=== PATIENT | female | born 1980 | race Caucasian/White ===

== ENCOUNTER 2020-01-03 22:57 | Emergency (ER) | payer BC ==
[~2020-01-03] VITALS: Ht 172 cm; Wt 125.9 kg
[~2020-01-03 22:57] MED LIST: HYDR-757 PO
[2020-01-03] MEDS ORDERED: NS IV 1000 ML 1,000 ML IV SCH (23:23)
[2020-01-03 23:28] LABS: BILIRUBIN,URINE NEGATIVE (NEGATIVE); CLARITY,URINE SL CLOUDY; COLOR,URINE YELLOW; GLUCOSE, URINE (UA) NEGATIVE (NEGATIVE); KETONES,URINE NEGATIVE (NEGATIVE); LEUKOCYTE ESTERASE ,URINE NEGATIVE (NEGATIVE); NITRITE,URINE NEGATIVE (NEGATIVE); PROTEIN,URINE NEGATIVE (NEGATIVE)
[2020-01-03] MEDS ORDERED: KETOROLAC 30 MG/ML VIAL IVP ONE (23:30)
[2020-01-03] MEDS ORDERED: ONDANSETRON 4 MG/2 ML (SDV) Z0FRAN IVP ONE (23:30)
[2020-01-03 23:31] LABS: BASOPHILS % (AUTO) 0 % (0-10); EOSINOPHILS # (AUTO) 0.2 10^3/uL (0.0-0.3); EOSINOPHILS % (AUTO) 2 % (0-10); HEMATOCRIT 36 % (35-52); HEMOGLOBIN 11.8 G/DL (11.5-16.0); LYMPHOCYTES # (AUTO) 2.9 X 10^3 (1.0-4.0); LYMPHOCYTES % (AUTO) 35 % (12-44); MEAN CORPUSCULAR HEMOGLOBIN 29 PG (25-34); MEAN CORPUSCULAR HGB CONC 33 G/DL (32-36); MEAN CORPUSCULAR VOLUME 90 FL (80-99); MEAN PLATELET VOLUME 10.6 FL (7.4-10.4); MONOCYTES # (AUTO) 0.7 X 10^3 (0.0-1.0); MONOCYTES % (AUTO) 8 % (0-12); NEUTROPHILS # (AUTO) 4.6 X 10^3 (1.8-7.8); NEUTROPHILS % (AUTO) 54 % (42-75); PLATELET COUNT 308 10^3/uL (130-400); RED CELL DISTRIBUTION WIDTH 14.9 % (10.0-14.5); WHITE BLOOD COUNT 8.4 10^3/uL (4.3-11.0)
[2020-01-03 23:38] LABS: ALBUMIN 4.1 GM/DL (3.2-4.5); POTASSIUM 3.9 MMOL/L (3.6-5.0)
[2020-01-03 23:40] LABS: BACTERIA,URINE FEW /HPF; CALCIUM OXALATE CRYSTALS,UR FEW /LPF; WBC,URINE 0-2 /HPF
[2020-01-03 23:41] LABS: TOTAL PROTEIN 7.7 GM/DL (6.4-8.2)
[2020-01-03 23:42] LABS: BILIRUBIN,TOTAL 0.4 MG/DL (0.1-1.0)
[2020-01-03 23:44] LABS: CREATININE SERUM 1.07 MG/DL (0.60-1.30)
--- NOTE | 2020-01-04 00:54 | NUR ---
Report from JOSE M Gama to assume care of pt
--- NOTE | 2020-01-04 01:39 | ED Abdominal Pain ---
General Chief Complaint: Abdominal/GI Problems Stated Complaint: L SIDE PAIN Nursing Triage Note: pt presents to ed with complaints of l lower abdominal pain since 1930. pt reports nausea and increased urgency with urination. Sepsis Screen: No Definite Risk Source of Information: Patient Exam Limitations: No Limitations History of Present Illness Date Seen by Provider: Jan 03, 2020 Time Seen by Provider: 23:18 Initial Comments This 39-year-old woman presents to the emergency room with pain extending from her left lower back and flank around to the left groin. It started around 19:30 rather abruptly. She has had some nausea and frequency. Urine has been dark. She has no history of ureteral stones. She denies . LMP was December 28. Allergies and Home Medications Allergies Coded Allergies: No Known Drug Allergies (Unverified , 11/18/14) Home Medications Hydrocodone Bit/Acetaminophen 1 Each Tablet, 1 EA PO Q6H PRN for SEVERE PAIN Prescribed by: WELLINGTON DEVLIN on 11/18/14 1439 Hydrocodone/Acetaminophen 1 Each Tablet, 1 EACH PO Q4H PRN for PAIN-BREAKTHROUGH Prescribed by: ILENE LOYOLA on 01/04/20147 Ondansetron 4 Mg Tab.rapdis, 4 MG SL Q4H PRN for NAUSEA/VOMITING Prescribed by: ILENE LOYOLA on 01/04/20147 Patient Home Medication List Home Medication List Reviewed: Yes Review of Systems Review of Systems Constitutional: no symptoms reported EENTM: No Symptoms Reported Respiratory: No Symptoms Reported Cardiovascular: No Symptoms Reported Gastrointestinal: See HPI Genitourinary: See HPI Musculoskeletal: no symptoms reported Skin: no symptoms reported Psychiatric/Neurological: No Symptoms Reported Endocrine: No Symptoms Reported Hematologic/Lymphatic: No Symptoms Reported Past Eigucnx-Dphoxc-Pcmdcv Hx Past Med/Social Hx: Reviewed Nursing Past Med/Soc Hx Patient Social History Alcohol Use: Occasionally Uses Recreational Drug Use: No Smoking Status: Never a Smoker Recent Foreign Travel: No Contact w/Someone Who Travel: No Recent Infectious Disease Expo: No Physical Abuse: No Sexual Abuse: No Mistreated: No Fear: No Seasonal Allergies Seasonal Allergies: Yes Past Medical History Surgeries: Yes (gastric sleeve, r knee) Section Respiratory: Yes Asthma Cardiac: No Neurological: No Reproductive Disorders: No Gastrointestinal: No Musculoskeletal: No Endocrine: No Cancer: No Psychosocial: No Anxiety, Depression Integumentary: No Blood Disorders: No Adverse Reaction/Blood Tranf: No Physical Exam Vital Signs Vital Signs - First Documented 01/03/20 01/04/20 23:25 01:56 Temp 36.6 Pulse 83 Resp 18 B/P (MAP) 145/109 (121) Pulse Ox 99 O2 Delivery Room Air Capillary Refill : Less Than 3 Seconds Height/Weight/BMI Height: 5'8" Weight: 230lbs. oz. 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, no motor/sensory deficits, alert, normal mood/affect, oriented x 3 Skin: normal color, warm/dry Progress/Results/Core Measures Results/Orders Lab Results Laboratory Tests Test 01/03/20 23:07 01/03/20 23:19 Range/Units Urine Color YELLOW Urine Clarity SL CLOUDY Urine pH 6.0 5-9 Urine Specific [place] >=1.030 1.016-1.022 Urine Protein NEGATIVE NEGATIVE Urine Glucose (UA) NEGATIVE NEGATIVE Urine Ketones NEGATIVE NEGATIVE Urine Nitrite NEGATIVE NEGATIVE Urine Bilirubin NEGATIVE NEGATIVE Urine Urobilinogen 1.0 < = 1.0 MG/DL Urine Leukocyte Esterase NEGATIVE NEGATIVE Urine RBC (Auto) 2+ H NEGATIVE Urine RBC 2-5 H /HPF Urine WBC 0-2 /HPF Urine Squamous Epithelial Cells 2-5 /HPF Urine Crystals PRESENT H /LPF Urine Calcium Oxalate Crystals FEW H /LPF Urine Bacteria FEW H /HPF Urine Casts NONE /LPF Urine Mucus SMALL H /LPF Urine Culture Indicated YES White Blood Count 8.4 4.3-11.0 10^3/uL Red Blood Count 4.02 L 4.35-5.85 10^6/uL Hemoglobin 11.8 11.5-16.0 G/DL Hematocrit 36 35-52 % Mean Corpuscular Volume 90 80-99 FL Mean Corpuscular Hemoglobin 29 25-34 PG Mean Corpuscular Hemoglobin Concent 33 32-36 G/DL Red Cell Distribution Width 14.9 H 10.0-14.5 % Platelet Count 308 130-400 10^3/uL Mean Platelet Volume 10.6 H 7.4-10.4 FL Neutrophils (%) (Auto) 54 42-75 % Lymphocytes (%) (Auto) 35 12-44 % Monocytes (%) (Auto) 8 0-12 % Eosinophils (%) (Auto) 2 0-10 % Basophils (%) (Auto) 0 0-10 % Neutrophils # (Auto) 4.6 1.8-7.8 X 10^3 Lymphocytes # (Auto) 2.9 1.0-4.0 X 10^3 Monocytes # (Auto) 0.7 0.0-1.0 X 10^3 Eosinophils # (Auto) 0.2 0.0-0.3 10^3/uL Basophils # (Auto) 0.0 0.0-0.1 10^3/uL Sodium Level 139 135-145 MMOL/L Potassium Level 3.9 3.6-5.0 MMOL/L Chloride Level 109 H 98-107 MMOL/L Carbon Dioxide Level 19 L 21-32 MMOL/L Anion Gap 11 5-14 MMOL/L Blood Urea Nitrogen 16 7-18 MG/DL Creatinine 1.07 0.60-1.30 MG/DL Estimat Glomerular Filtration Rate 57 BUN/Creatinine Ratio 15 Glucose Level 108 H 70-105 MG/DL Calcium Level 9.0 8.5-10.1 MG/DL Corrected Calcium 8.9 8.5-10.1 MG/DL Total Bilirubin 0.4 0.1-1.0 MG/DL Aspartate Amino Transf (AST/SGOT) 16 5-34 U/L Alanine Aminotransferase (ALT/SGPT) 9 0-55 U/L Alkaline Phosphatase 82 40-136 U/L C-Reactive Protein High Sensitivity 0.22 0.00-0.50 MG/DL Total Protein 7.7 6.4-8.2 GM/DL Albumin 4.1 3.2-4.5 GM/DL Lipase 24 8-78 U/L Serum Test, Qualitative NEGATIVE NEGATIVE My Orders Orders - ILENE GALVEZ MD Ua Culture If Indicated (01/03/20 23:19) Ondansetron Injection (Zofran Injectio (01/03/20 23:30) Ketorolac Injection (Toradol Injection) (01/03/20 23:30) Ed Iv/Invasive Line Start (01/03/20 23:23) Ns Iv 1000 Ml (Sodium Chloride 0.9%) (01/03/20 23:23) Cbc With Automated Diff (01/03/20 23:23) Comprehensive Metabolic Panel (01/03/20 23:23) Hs C Reactive Protein (01/03/20 23:23) Hcg,Qualitative Serum (01/03/20 23:23) Lipase (01/03/20 23:23) Urine Culture (01/03/20 23:07) Ct Abd/Pelvis Wo(Kidney Stone) (01/04/20 00:40) Oxycodone/Apap 5/325mg Tablet (Percocet (01/04/20 01:45) Medications Given in ED Current Medications Medications Dose Ordered Sig/Joellen Route Start Time Stop Time Status Last Admin Dose Admin Oxycodone/ Acetaminophen 1 tab ONCE ONCE PO 01/04/20 01:45 01/04/20 01:46 DC 01/04/20 01:48 1 TAB Vital Signs/I&O 01/03/20 01/04/20 23:25 01:56 Temp 36.6 36.6 Pulse 83 79 Resp 18 18 B/P (MAP) 145/109 (121) 150/94 (121) Pulse Ox 99 99 O2 Delivery Room Air Blood Pressure Mean: 121 Progress Progress Note : Progress Note Patient received Zofran, Toradol, and IV fluids. Blood was noted in her urine. Risks and benefits of CT were reviewed with patient. Patient elects to proceed with CT scan and a small distal ureteral stone was noted on the left. Patient was treated accordingly. Departure Impression Primary Impression: Left ureteral stone Disposition: HOME, SELF-CARE Condition: Improved Departure-Patient Inst. Decision time for Depature: 01:46 Referrals: BENJAMIN ROD MD (PCP/Family) Primary Care Physician Patient Instructions: Kidney Stones in Adults Add. Discharge Instructions: Drink plenty of clear liquids. For primary pain control you may take ibuprofen up to 600 mg every 6 hours as needed. Add hydrocodone as prescribed for pain not controlled by ibuprofen. Strain your urine and bring any stones collected to your follow-up appointment with your doctor. Please follow-up with your doctor as soon as possible. Use Zofran as prescribed for nausea and vomiting. Return to care if you have worsening symptoms not controlled by the above measures. All discharge instructions reviewed with patient and/or family. Voiced understanding. Scripts Hydrocodone/Acetaminophen (Hydrocodone-Acetamin 5-325 mg) 1 Each Tablet 1 EACH PO Q4H PRN for PAIN-BREAKTHROUGH, #15 TAB Prov: ILENE GALVEZ MD 01/04/20 Ondansetron (Ondansetron Odt) 4 Mg Tab.rapdis 4 MG SL Q4H PRN for NAUSEA/VOMITING, #10 TAB Prov: ILENE GALVEZ MD 01/04/20 Copy Copies To 1: BENJAMIN ROD MD, JOSHUA T MD Jan 04, 2020 01:39
[2020-01-04] MEDS ORDERED: oxyCODONE/APAP 5/325MG (PERCOCET 5) TABLET PO ONE (01:45)
[2020-01-04] MEDS ORDERED: HYDR-83 PO (01:48)
[2020-01-04] MEDS ORDERED: ONDA4TAB11 SL (01:48)
[2020-01-04 01:56] VITALS: BP 150/94
--- NOTE | 2020-01-04 07:04 | Diagnostic Imaging Report ---
PROCEDURE: CT urinary tract, rule out kidney stone. TECHNIQUE: Multiple contiguous axial images were obtained through the abdomen and pelvis without the use of intravenous contrast. Auto Exposure Controls were utilized during the CT exam to meet ALARA standards for radiation dose reduction. INDICATION: Left flank pain and increased urgency to urinate since last evening. CORRELATION STUDY: None. FINDINGS: LOWER THORAX: Clear. Surgical changes at the gastroesophageal junction. LIVER: Unremarkable. GALLBLADDER: Present and unremarkable. No bile duct dilatation. SPLEEN: Multiple splenic granulomas. PANCREAS: Unremarkable. ADRENAL GLANDS: Unremarkable. KIDNEYS: 2 mm calculus at the left ureterovesical junction with mild left hydronephrosis. Additional 3 mm calculus seen midportion left kidney. Right kidney and collecting system unremarkable. ABDOMINAL AORTA: Unremarkable, nonaneurysmal. GASTROINTESTINAL TRACT: No obstruction or inflammation. Normal appendix. URINARY BLADDER: Decompressed. REPRODUCTIVE: Uterus and adnexa unremarkable. OSSEOUS STRUCTURES: No acute abnormality. OTHER: None. IMPRESSION: 1. Mild left-sided hydronephrosis secondary to approximately 2 mm calculus at the left UVJ. Additional obstructing stone left kidney. A preliminary report was provided by [employer]. Dictated by: Dictated on workstation # [id number]
== END 2020-01-04 01:58 | disposition home or self-care (01) ==
LOC: EDUNIT# 22:57 → ER 22:58
DX: N20.1 Calculus of ureter (principal)
CPT/HCPCS: 36415; 74176; 80053; 81000; 83690; 84703; 85025; 86141; 87088

== ENCOUNTER 2021-02-05 19:03 | Emergency (ER) | payer OTHER, BC ==
[~2021-02-05] VITALS: Ht 175.3 cm; Wt 131.5 kg
[~2021-02-05 19:03] MED LIST changes: +ACHD5005 PO; +ONDA4TAB11 SL
[2021-02-05] MEDS ORDERED: KETOROLAC 30 MG/ML VIAL ONE (19:33)
[2021-02-05 19:41] LABS: BASOPHILS % (AUTO) 0 % (0-10); EOSINOPHILS # (AUTO) 0.1 10^3/uL (0.0-0.3); EOSINOPHILS % (AUTO) 2 % (0-10); HEMATOCRIT 36 % (35-52); HEMOGLOBIN 11.1 g/dL (11.5-16.0); LYMPHOCYTES # (AUTO) 2.7 10^3/uL (1.0-4.0); LYMPHOCYTES % (AUTO) 31 % (12-44); MEAN CORPUSCULAR HEMOGLOBIN 29 pg (25-34); MEAN CORPUSCULAR HGB CONC 31 g/dL (32-36); MEAN CORPUSCULAR VOLUME 95 fL (80-99); MEAN PLATELET VOLUME 10.8 fL (9.0-12.2); MONOCYTES # (AUTO) 0.6 10^3/uL (0.0-1.0); MONOCYTES % (AUTO) 7 % (0-12); NEUTROPHILS # (AUTO) 5.2 10^3/uL (1.8-7.8); NEUTROPHILS % (AUTO) 60 % (42-75); PLATELET COUNT 266 10^3/uL (130-400); WHITE BLOOD COUNT 8.7 10^3/uL (4.3-11.0)
[2021-02-05] MEDS ORDERED: NS 100 ML (IVPB) BAG IV ONE (19:45)
[2021-02-05] MEDS ORDERED: HOLD METFORMIN - RECEIVED CONTRAST 20 ML VIAL IV SCH (19:45)
[2021-02-05] MEDS ORDERED: IOHEXOL 350 MG/ML 100 ML (OMNIPAQUE 350) VIAL IV ONE (19:45)
[2021-02-05] MEDS ORDERED: KETOROLAC 15 MG/ML VIAL IVP ONE (19:45)
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
[2021-02-05 20:02] LABS: CALCIUM 8.9 MG/DL (8.5-10.1); CREATININE SERUM 0.73 MG/DL (0.60-1.30); POTASSIUM 3.7 MMOL/L (3.6-5.0)
--- NOTE | 2021-02-05 20:03 | Diagnostic Imaging Report ---
Indication: Left knee injury 3 views of the left knee show no fracture, dislocation or pathologic effusion. There are no radiopaque foreign objects. IMPRESSION: Negative left knee Dictated by: Dictated on workstation # [id number]
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
[2021-02-05] MEDS ORDERED: morphine INJ 10 MG/ML 1ML (SYR OR VIAL) IVP STA (22:03)
[2021-02-05 22:09] LABS: BILIRUBIN,URINE NEGATIVE (NEGATIVE); CLARITY,URINE SL CLOUDY; COLOR,URINE ORANGE; GLUCOSE, URINE (UA) NEGATIVE (NEGATIVE); KETONES,URINE NEGATIVE (NEGATIVE); LEUKOCYTE ESTERASE ,URINE NEGATIVE (NEGATIVE); NITRITE,URINE NEGATIVE (NEGATIVE); PH,URINE 5.5 (5-9); PROTEIN,URINE 1+ (NEGATIVE)
[2021-02-05] MEDS ORDERED: HYDROcodone/APAP 5 MG/325 MG (LORTAB) TAB PO ONE (22:15)
[2021-02-05 22:16] LABS: BACTERIA,URINE TRACE /HPF
[2021-02-05] MEDS ORDERED: ACHD5005 PO (22:30)
[2021-02-05 22:45] VITALS: BP 129/91
== END 2021-02-05 22:45 | disposition home or self-care (01) ==
LOC: EDUNIT# 19:03 → ER 19:06
DX: S22.32XA Fracture of one rib, left side, initial encounter for closed fracture (principal); J45.909 Unspecified asthma, uncomplicated; V29.9XXA Motorcycle rider (driver) (passenger) injured in unspecified traffic accident, initial encounter
CPT/HCPCS: 36415; 71045; 72170; 73562; 74177; 80048; 81000; 85025